=== PATIENT | female | born 1990 | race Asian ===

== ENCOUNTER 2017-11-03 18:07 | Emergency (ER) | payer OTHER ==
[~2017-11-03] VITALS: Ht 165.1 cm; Wt 56.6 kg
[2017-11-03 18:21] VITALS: BP 107/77
[2017-11-03] MEDS ORDERED: PROPARACAINE OPHTH 0.5%, 15ML ONE (18:45)
[2017-11-03] MEDS ORDERED: PROPARACAINE OPHTH 0.5%, 15ML EACHEYE ONE (19:00)
== END 2017-11-03 19:13 | disposition home or self-care (01) ==
LOC: ED 19:00
DX: H10.022 Other mucopurulent conjunctivitis, left eye (principal)
CPT/HCPCS: 99283